=== PATIENT | male | born 1980 | race Caucasian/White ===

== ENCOUNTER 2024-10-14 08:54 | Outpatient (CLI) | payer OTHER | END 2024-10-14 09:05 | disposition home or self-care (01) | LOC: SONOGRAMA 08:54 | PROVIDERS: ATTEND Pathology Anatomic Pathology & Clinical Pathology | DX: R59.0 Localized enlarged lymph nodes (principal); D17.0 Benign lipomatous neoplasm of skin and subcutaneous tissue of head, face and neck ==